=== PATIENT | male | born 1990 | race Hispanic/Latino ===

== ENCOUNTER 2020-12-01 02:50 | Emergency (ER) | payer SELFPAY ==
[2020-12-01] MEDS ORDERED: Lorazepam 2 MG/ML VIAL ONE (03:53)
[2020-12-01] MEDS ORDERED: Boostrix 0.5 ML (Tdap) VIAL ONE (06:42)
== END 2020-12-01 08:43 | disposition home or self-care (01) ==
LOC: ERS 02:50
DX: S02.31XA Fracture of orbital floor, right side, initial encounter for closed fracture (principal); S01.511A Laceration without foreign body of lip, initial encounter; S50.312A Abrasion of left elbow, initial encounter; Y04.0XXA Assault by unarmed brawl or fight, initial encounter
CPT/HCPCS: 12011; 36415; 70450; 70486; 72125; 80307; 90471; 90715; 96374; J2060

== ENCOUNTER 2022-01-08 01:31 | Emergency (ER) | payer SELFPAY ==
[2022-01-08] MEDS ORDERED: Proparacaine 0.5% Opth 15 ML BOT ONE (01:44)
[2022-01-08] MEDS ORDERED: Fluorescein Opthalmic Strip ONE (01:45)
== END 2022-01-08 02:06 | disposition home or self-care (01) ==
LOC: ERS 01:31
DX: T15.02XA Foreign body in cornea, left eye, initial encounter (principal)
CPT/HCPCS: 99283